=== PATIENT | female | born 1985 ===

== ENCOUNTER 2017-09-22 05:49 | Emergency (ER) | payer MEDICAID, OTHER ==
[~2017-09-22] VITALS: Ht 152.4 cm; Wt 70.0 kg
[~2017-09-22 05:49] MED LIST: MACR100C PO; PREN0.01 PO; Z.0.NO CURRENT MEDS
[2017-09-22 05:58] VITALS: BP 163/97; PULSE 88; RESP 18; TEMP 98.2; O2SAT 100
[2017-09-22] MEDS ORDERED: SODIUM CHLOR 0.9% 1000 ML INJ 1,000 ML IV ONE (06:08)
--- NOTE | 2017-09-22 06:10 | PD ---
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 She reports that the pain is similar to her premenstrual syndrome. She reports that she started to have some spotting, however the. Did not fully develop, therefore she took a test and it was positive. She waited a few days to see if the bleeding would become heavier again and on Saturday bleeding became more significant like her menstrual cycle, however it again stopped after 1 day. The patient reports that the cramping has continued to come and go along with the spotting. She reports that she took a second test that was positive. She then decided to come to the emergency department for evaluation and treatment. The patient is [facility] for [facility] care and [place], [place]. Her OB history is complicated by having a vaginal delivery 13 years ago of a 20 week that survived for approximately 15 minutes. The patient also has a history of 1 of a healthy child. On review of systems otherwise, the patient denies having any known recent fevers, cough or congestion, neck pain, chest pain, shortness of breath, vomiting, diarrhea, urinary symptoms, or neurologic symptoms. The patient reports having nausea today. LMP: 08/19/17 [facility] Past Medical History Narrative Medical The patient's past medical history is significant for irregular menstrual cycles , anemia with a history of iron infusions. She denies any history of blood transfusion Anemia: Yes Diminished Hearing: No Tetanus Vaccination: Unknown Influenza Vaccination: No ?: Unknown LMP: 08/19/2017 : 5 Para: 1 Miscarriage: 2 Past Surgical History Narrative Surgical The patient's past surgical history is significant for a x1. Section: Yes Social History Alcohol Use: No Tobacco Use: No Substance Use: No Allergies-Medications (Allergen,Severity, Reaction): Coded Allergies: No Known Allergies (Unverified Adverse Reaction, Unknown, 09/22/17) Reported Meds & Prescriptions Reported Meds & Active Scripts Active No Active Prescriptions or Reported Medications Review of Systems Except as stated in HPI: all other systems reviewed are Neg General / Constitutional: No: Fever Eyes: No: Visual changes HENT: No: Headaches Cardiovascular: No: Chest Pain or Discomfort Respiratory: No: Shortness of Breath Gastrointestinal: Positive: Nausea, Abdominal Pain Genitourinary: Positive: Pelvic Pain, Vaginal Bleeding, No: Dysuria Musculoskeletal: No: Pain Skin: No Rash Neurologic: No: Weakness Psychiatric: No: Depression Endocrine: No: Polydipsia Hematologic/Lymphatic: No: Easy Bruising Physical Exam Narrative General: The patient is a well-developed well-nourished female in no acute distress. Head and Neck exam: Head is normocephalic atraumatic. Eyes: EOMI, pupils are equal round and reactive to light. Nose: Midline septum with pink mucous membranes Mouth: Dentition unremarkable. Moist mucus membranes. Posterior oropharynx is not erythematous. No tonsillar hypertrophy. Uvula midline. Airway patent. Neck: No palpable lymphadenopathy. No nuchal rigidity. No thyromegaly. Cardiovascular: Regular rate and rhythm without murmurs, gallops, or rubs. Lungs: Clear to auscultation bilaterally. No wheezes, rhonchi, or rales. Abdomen: Soft, without tenderness to palpation in all 4 quadrants of the abdomen. No guarding, rebound, or rigidity. Normal bowel sounds are audible. No tenderness on palpation of McBurney's point Extremities: No clubbing, cyanosis, or edema. 2+ pulses in all 4 extremities. Back: No spinous process tenderness to palpation. No costovertebral angle tenderness to palpation. Neurologic Exam: No calf tenderness on palpation. Skin Exam: No rash noted. Intact skin that is warm and dry. Gynecologic exam: The patient was placed in the dorsal lithotomy position. Her external genitalia were examined. She had no evidence of rash or lesions. The speculum was placed into her vagina and the cervix was identified. She has vaginal discharge noted that is yellow in color. This was wet prepped and cultured. No cervical friability. On Bimanual exam: she has no cervical motion tenderness. No adnexal tenderness or prominence noted on palpation. No uterine tenderness or enlargement noted on palpation. Data Data Last Documented VS Vital Signs Date Time Temp Pulse Resp B/P (MAP) Pulse Ox O2 Delivery O2 Flow Rate FiO2 09/22/17 06:23 98.0 88 20 160/78 (105) 98 Room Air Orders Orders Beta Hcg (Quant/Titer) (09/22/17 06:08) Complete Blood Count With Diff (09/22/17 06:08) Comprehensive Metabolic Panel (09/22/17 06:08) Gc And Chlamydia Pcr (09/22/17 06:08) Complete Rh (09/22/17 06:08) Wet Prep Profile (09/22/17 06:08) Urinalysis - C+S If Indicated (09/22/17 06:08) Iv Access Insert/Monitor (09/22/17 06:08) Ecg Monitoring (09/22/17 06:08) Sodium Chlor 0.9% 1000 Ml Inj (Ns 1000 M (09/22/17 06:08) Ed Urine Pregnancytest Poc (09/22/17 06:08) Ed Poc Ultrasound (09/22/17 ) Ceftriaxone Inj (Rocephin Inj) (09/22/17 07:00) Azithromycin Powd Pack (Zithromax Powd P (09/22/17 07:00) Us Pelvis (Ques Pr/Ect)W Trans (09/22/17 06:56) Labs Laboratory Tests Test 09/22/17 06:20 09/22/17 06:30 White Blood Count 10.1 TH/MM3 Red Blood Count 5.79 MIL/MM3 Hemoglobin 16.6 GM/DL Hematocrit 49.0 % Mean Corpuscular Volume 84.7 FL Mean Corpuscular Hemoglobin 28.6 PG Mean Corpuscular Hemoglobin Concent 33.8 % Red Cell Distribution Width 14.3 % Platelet Count 207 TH/MM3 Mean Platelet Volume 10.5 FL Neutrophils (%) (Auto) 69.4 % Lymphocytes (%) (Auto) 21.8 % Monocytes (%) (Auto) 6.0 % Eosinophils (%) (Auto) 2.3 % Basophils (%) (Auto) 0.5 % Neutrophils # (Auto) 7.0 TH/MM3 Lymphocytes # (Auto) 2.2 TH/MM3 Monocytes # (Auto) 0.6 TH/MM3 Eosinophils # (Auto) 0.2 TH/MM3 Basophils # (Auto) 0.1 TH/MM3 CBC Comment DIFF FINAL Differential Comment Clue Cells (Wet Prep) NONE SEEN Vaginal Trichomonas (Wet Prep) NONE SEEN Vaginal Yeast (Wet Prep) NONE SEEN MDM Medical Decision Making Medical Screen Exam Complete: Yes Emergency Medical Condition: Yes Medical Record Reviewed: Yes Differential Diagnosis Ectopic , versus threatened miscarriage, versus subchorionic hemorrhage Narrative Course During the course of the patient's emergency department visit, the patient's history, examination, and differential diagnosis were reviewed with the patient. The patient was placed on a hall monitor with oximetry and frequent blood pressure monitoring. The patient had IV access obtained and blood work sent for analysis. The patient was initially provided normal saline 1 L IV fluid bolus. Given the patient's yellow vaginal discharge, the patient was also given Rocephin 1 g IV, Zithromax 1 g p.o. The patient's laboratory studies were reviewed and remarkable for a white count of 10.1, hemoglobin 16.6, platelets 207, with a normal differential. Wet prep that is negative. A bedside test was positive. The patient's chemistry and formal ultrasound are pending at the conclusion of my shift. A bedside ultrasound showed no evidence of visible intrauterine by transabdominal route. The patient's case will be checked out to the oncoming emergency physician to disposition the patient based on the conclusion of her workup. Procedures Procedure Narrative Emergency Department Pelvic ultrasound was performed with patient consent. The curvilinear probe was used in the transverse and sagittal views within the suprapubic region revealing no visible intrauterine . Diagnosis Primary Impression: Threatened miscarriage Scripts No Active Prescriptions or Reported Joseline Coker MD Sep 22, 2017 06:10
[2017-09-22 06:23] VITALS: BP 160/78; PULSE 88; RESP 20; TEMP 98; O2SAT 98
[2017-09-22 06:46] LABS: BASOPHIL # 0.1 TH/MM3 (0-0.2); BASOPHIL % 0.5 % (0.0-2.0); EOSINOPHIL # 0.2 TH/MM3 (0-0.4); EOSINOPHIL % 2.3 % (0.0-4.0); HEMOGLOBIN 16.6 GM/DL (11.6-15.3); LYMPH % 21.8 % (9.0-44.0); LYMPHOCYTE # 2.2 TH/MM3 (1.0-4.8); MEAN CELL VOLUME 84.7 FL (80.0-100.0); MEAN CORPUSCULAR HEMOGLOBIN 28.6 PG (27.0-34.0); MEAN CORPUSCULAR HGB CONC 33.8 % (32.0-36.0); MEAN PLATELET VOLUME 10.5 FL (7.0-11.0); MONOCYTE # 0.6 TH/MM3 (0-0.9); NEUT % 69.4 % (16.0-70.0); PLATELET COUNT 207 TH/MM3 (150-450); RED BLOOD COUNT 5.79 MIL/MM3 (4.00-5.30); RED CELL DISTRIBUTION WIDTH 14.3 % (11.6-17.2); WHITE BLOOD COUNT 10.1 TH/MM3 (4.0-11.0)
[2017-09-22] MEDS ORDERED: AZITHROMYCIN PWD FOR SUSP 1 GM PACKET PO ONE (07:00)
[2017-09-22] MEDS ORDERED: cefTRIAXone INJ 1,000 MG in SODIUM CHLORIDE 0.9% INJ 100 ML IV ONE (07:00)
[2017-09-22 07:07] LABS: ALT (GPT) 71 U/L (10-53)
[2017-09-22 07:23] LABS: ALKALINE PHOSPHATASE 67 U/L (45-117); TOTAL BILIRUBIN ADULT 0.3 MG/DL (0.2-1.0); TOTAL PROTEIN 7.6 GM/DL (6.4-8.2)
[2017-09-22 07:27] LABS: ALBUMIN 3.6 GM/DL (3.4-5.0); AST (GOT) 31 U/L (15-37); BICARBONATE 21.5 MEQ/L (21.0-32.0); BLOOD UREA NITROGEN 7 MG/DL (7-18); CALCIUM 8.9 MG/DL (8.5-10.1); CHLORIDE 108 MEQ/L (98-107); CREATININE 0.72 MG/DL (0.50-1.00); GLOMERULAR FILTRATION RATE 94 ML/MIN (>89); GLUCOSE,RANDOM 117 MG/DL (74-106); SODIUM (NA) 138 MEQ/L (136-145)
[2017-09-22 07:32] LABS: BILIRUBIN, URINE NEG (NEG); BLOOD, URINE SMALL (NEG); GLUCOSE,URINE NEG (NEG); KETONE, URINE NEG (NEG); MUCUS URINE FEW /lpf (OCC); NITRITE,URINE NEG (NEG); SQUAMOUS EPITHELIAL CELL URINE 6 /hpf (0-5); URINE COLOR LIGHT-YELLOW (YELLW/STRAW); URINE LEUKOCYTE ESTERASE MOD (NEG)
--- NOTE | 2017-09-22 08:20 | RADRPT ---
EXAM DATE/TIME: 09/22/2017 07:19 [place] COMPARISON: No previous studies available for comparison. INDICATIONS : Bleeding for 1 week. LAB(S): Beta-hC MEDICAL HISTORY : . SURGICAL HISTORY : section. ENCOUNTER: Initial ACUITY: 1 week PAIN SCORE: 2/10 LOCATION: Bilateral pelvis MEASUREMENTS: UTERUS: 11.3 x 7.0 x 5.9 cm ENDOMETRIAL STRIPE: 19 mm RIGHT OVARY: 2.9 x 1.2 x 1.7 cm LEFT OVARY: 4.5 x 3.9 x 2.9 cm FREE FLUID: Yes Trace amount of fluid in the cul-de-sac. CROWN RUMP LENGTH: Not visualized. = WKS DAYS FHR: Not visualized. BPM FINDINGS: UTERUS: The uterus is prominent and inhomogeneous. Endometrium is abnormally thickened measuring up to 19 mm. There is no intrauterine visualized there is a hypoechoic masslike area in the posterior b bhaskar of uterus measuring 3.7 x 2.6 x 2.5 cm. RIGHT OVARY: Ovary contains no mass or significant cystic lesion. LEFT OVARY: There to benign cystic structures measuring 2 x 1.9 x 1.1 cm and 1.7 x 1.5 x 1.1 cm. MISCELLANEOUS: Trace fluid is noted in the cul-de-sac.. CONCLUSION: 1. Prominent uterus with thickened endometrium and no evidence of intrauterine . 2. Probable leiomyoma in the posterior body of the uterus. 3. 2 benign cystic structures in the left ovary. 4. Trace fluid in the cul-de-sac. No evidence of adnexal mass. 5. This study does not exclude ectopic . Javier Oro MD on September 22, 2017 at 8:15 Board Certified Radiologist. This report was verified electronically.
--- NOTE | 2017-09-22 08:30 | PD ---
Physical Exam Narrative GENERAL: SKIN: Warm and dry. HEAD: Atraumatic. Normocephalic. EYES: Pupils equal and round. No scleral icterus. No injection or drainage. ENT: No nasal bleeding or discharge. Mucous membranes pink and moist. NECK: Trachea midline. No JVD. CARDIOVASCULAR: Regular rate and rhythm. RESPIRATORY: No accessory muscle use. Clear to auscultation. Breath sounds equal bilaterally. GASTROINTESTINAL: Abdomen soft, non-tender, nondistended. MUSCULOSKELETAL: Extremities without clubbing, cyanosis, or edema. No obvious deformities. NEUROLOGICAL: Awake and alert. No obvious cranial nerve deficits. Motor grossly within normal limits. Five out of 5 muscle strength in the arms and legs. Normal speech. PSYCHIATRIC: Appropriate mood and affect; insight and judgment normal. Data Data Last Documented VS Vital Signs Date Time Temp Pulse Resp B/P (MAP) Pulse Ox O2 Delivery O2 Flow Rate FiO2 09/22/17 06:23 98.0 88 20 160/78 (105) 98 Room Air Orders Orders Beta Hcg (Quant/Titer) (09/22/17 06:08) Complete Blood Count With Diff (09/22/17 06:08) Comprehensive Metabolic Panel (09/22/17 06:08) Gc And Chlamydia Pcr (09/22/17 06:08) Complete Rh (09/22/17 06:08) Wet Prep Profile (09/22/17 06:08) Urinalysis - C+S If Indicated (09/22/17 06:08) Iv Access Insert/Monitor (09/22/17 06:08) Ecg Monitoring (09/22/17 06:08) Sodium Chlor 0.9% 1000 Ml Inj (Ns 1000 M (09/22/17 06:08) Ed Urine Pregnancytest Poc (09/22/17 06:08) Ed Poc Ultrasound (09/22/17 ) Ceftriaxone Inj (Rocephin Inj) (09/22/17 07:00) Azithromycin Powd Pack (Zithromax Powd P (09/22/17 07:00) Us Pelvis (Ques Pr/Ect)W Trans (09/22/17 06:56) Labs Laboratory Tests Test 09/22/17 06:20 09/22/17 06:30 09/22/17 06:40 White Blood Count 10.1 TH/MM3 Red Blood Count 5.79 MIL/MM3 Hemoglobin 16.6 GM/DL Hematocrit 49.0 % Mean Corpuscular Volume 84.7 FL Mean Corpuscular Hemoglobin 28.6 PG Mean Corpuscular Hemoglobin Concent 33.8 % Red Cell Distribution Width 14.3 % Platelet Count 207 TH/MM3 Mean Platelet Volume 10.5 FL Neutrophils (%) (Auto) 69.4 % Lymphocytes (%) (Auto) 21.8 % Monocytes (%) (Auto) 6.0 % Eosinophils (%) (Auto) 2.3 % Basophils (%) (Auto) 0.5 % Neutrophils # (Auto) 7.0 TH/MM3 Lymphocytes # (Auto) 2.2 TH/MM3 Monocytes # (Auto) 0.6 TH/MM3 Eosinophils # (Auto) 0.2 TH/MM3 Basophils # (Auto) 0.1 TH/MM3 CBC Comment DIFF FINAL Differential Comment Blood Urea Nitrogen 7 MG/DL Creatinine 0.72 MG/DL Random Glucose 117 MG/DL Total Protein 7.6 GM/DL Albumin 3.6 GM/DL Calcium Level 8.9 MG/DL Alkaline Phosphatase 67 U/L Aspartate Amino Transf (AST/SGOT) 31 U/L Alanine Aminotransferase (ALT/SGPT) 71 U/L Total Bilirubin 0.3 MG/DL Sodium Level 138 MEQ/L Potassium Level 3.7 MEQ/L Chloride Level 108 MEQ/L Carbon Dioxide Level 21.5 MEQ/L Anion Gap 9 MEQ/L Estimat Glomerular Filtration Rate 94 ML/MIN Human Chorionic Gonadotropin, Quant 1289 MIU/ML Clue Cells (Wet Prep) NONE SEEN Vaginal Trichomonas (Wet Prep) NONE SEEN Vaginal Yeast (Wet Prep) NONE SEEN Urine Color LIGHT-YELLOW Urine Turbidity HAZY Urine pH 6.0 Urine Specific [place] 1.011 Urine Protein NEG mg/dL Urine Glucose (UA) NEG mg/dL Urine Ketones NEG mg/dL Urine Occult Blood SMALL Urine Nitrite NEG Urine Bilirubin NEG Urine Urobilinogen LESS THAN 2.0 MG/DL Urine Leukocyte Esterase MOD Urine RBC LESS THAN 1 /hpf Urine WBC 3 /hpf Urine Squamous Epithelial Cells 6 /hpf Urine Mucus FEW /lpf Microscopic Urinalysis Comment CULT NOT INDICATED MDM Medical Record Reviewed: Yes Supervised Visit with ALICIA: No Narrative Course CBC shows no leukocytosis, no anemia, no left shift, normal platelet count UA is negative for any evidence of UTI Wet prep negative for Trichomonas, yeast, or clue cells. Electrolytes are within normal limits, normal kidney function and liver function. Quantitative hCG is 1289 Blood bank O+ Ultrasound read by the radiologist does not show any evidence of adnexal masses , does show a probable leiomyoma in the posterior body of the uterus, prominent uterus with thickened endometrium but without an IUP After thorough evaluation of all of the above the patient's most likely diagnosis is threatened AB, the patient is advised to return in 48-72 hours for a repeat beta-hCG level, this can be done at her PCP, or it can be done through clinic, or it could be performed her [facility] of choice. Diagnosis Primary Impression: Threatened miscarriage Patient Instructions: General Instructions, Threatened Miscarriage (ED) Scripts No Active Prescriptions or Reported Meds Disposition: 01 DISCHARGE HOME Condition: Stable Shiva Cramer MD Sep 22, 2017 08:30
[2017-09-22 09:07] VITALS: BP 132/69
== END 2017-09-22 09:10 | disposition home or self-care (01) ==
LOC: NEPC 05:49
DX: O20.0 Threatened abortion (principal)
CPT/HCPCS: 76700; 76817; 80053; 81001; 84702; 84703; 85025; 86901; 87210; 87491; 87591; 96374; 99284; J0696; J7030

== ENCOUNTER 2017-09-24 05:35 | Emergency (ER) | payer MEDICAID ==
[~2017-09-24] VITALS: Ht 152.4 cm; Wt 70.0 kg
[2017-09-24 05:37] VITALS: BP 128/73; PULSE 77; RESP 16; TEMP 98.5; O2SAT 99
[2017-09-24 06:07] LABS: AUTOMATED NEUTROPHIL # 6.8 TH/MM3 (1.8-7.7); BASOPHIL % 0.4 % (0.0-2.0); EOSINOPHIL # 0.2 TH/MM3 (0-0.4); EOSINOPHIL % 2.4 % (0.0-4.0); HEMATOCRIT 43.8 % (35.0-46.0); HEMOGLOBIN 14.8 GM/DL (11.6-15.3); LYMPHOCYTE # 2.1 TH/MM3 (1.0-4.8); MEAN CORPUSCULAR HEMOGLOBIN 28.5 PG (27.0-34.0); MEAN CORPUSCULAR HGB CONC 33.9 % (32.0-36.0); MEAN PLATELET VOLUME 9.4 FL (7.0-11.0); MONO % 5.5 % (0.0-8.0); MONOCYTE # 0.5 TH/MM3 (0-0.9); NEUT % 69.7 % (16.0-70.0); PLATELET COUNT 237 TH/MM3 (150-450); RED BLOOD COUNT 5.21 MIL/MM3 (4.00-5.30); RED CELL DISTRIBUTION WIDTH 13.8 % (11.6-17.2); WHITE BLOOD COUNT 9.7 TH/MM3 (4.0-11.0)
--- NOTE | 2017-09-24 06:34 | PD ---
HPI Chief Complaint: Medical Clearance Time Seen by Provider: 05:43 Travel History International Travel<30 days: No Contact w/Intl Traveler<30days: No Traveled to known affect area: No History of Present Illness HPI The patient is a 32 year old female who presents to the [facility] emergency department with a history of vaginal bleeding in that began last week. The patient was seen in the emergency department and evaluation of this on September 22 by me. The patient at that time underwent ultrasound, blood typing and other laboratory studies. The patient on ultrasound had no intrauterine identified. Her quantitative beta-hCG was 1289. The patient was told that she would require repeat analysis of her quantitative beta -hCG in 48 hours. 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 The patient reports that the bleeding has lightened into spotting. She reports that she has intermittent cramping, however no severe pain. She denies having any lightheaded sensation, chest pain, chest pressure, or shortness of breath. PFS Past Medical History Narrative Medical The patient's past medical history is significant for irregular menstrual cycles , history of anemia requiring iron infusions. Anemia: Yes Diminished Hearing: No ?: Not : 5 Para: 1 Miscarriage: 2 Past Surgical History Narrative Surgical The patient's past surgical history is significant for having a 1. Section: Yes Social History Alcohol Use: No Tobacco Use: No Substance Use: No Allergies-Medications (Allergen,Severity, Reaction): Coded Allergies: No Known Allergies (Unverified Adverse Reaction, Unknown, 09/24/17) Reported Meds & Prescriptions Reported Meds & Active Scripts Active No Active Prescriptions or Reported Medications Review of Systems Except as stated in HPI: all other systems reviewed are Neg General / Constitutional: No: Fever Eyes: No: Visual changes HENT: No: Headaches Cardiovascular: No: Chest Pain or Discomfort Respiratory: No: Shortness of Breath Gastrointestinal: Positive: Abdominal Pain (Abdominal cramping) Genitourinary: Positive: Vaginal Bleeding, No: Dysuria Musculoskeletal: No: Pain Skin: No Rash Neurologic: No: Weakness Psychiatric: No: Depression Endocrine: No: Polydipsia Hematologic/Lymphatic: No: Easy Bruising Physical Exam Narrative General: The patient is a well-developed well-nourished female in no acute distress. Head and Neck exam: Head is normocephalic atraumatic. Eyes: EOMI, pupils are equal round and reactive to light. Nose: Midline septum with pink mucous membranes Mouth: Dentition unremarkable. Moist mucus membranes. Posterior oropharynx is not erythematous. No tonsillar hypertrophy. Uvula midline. Airway patent. Neck: No palpable lymphadenopathy. No nuchal rigidity. No thyromegaly. Cardiovascular: Regular rate and rhythm without murmurs, gallops, or rubs. Lungs: Clear to auscultation bilaterally. No wheezes, rhonchi, or rales. Abdomen: Soft, without tenderness to palpation in all 4 quadrants of the abdomen. No guarding, rebound, or rigidity. Normal bowel sounds are audible. No tenderness on palpation of McBurney's point. Extremities: No clubbing, cyanosis, or edema. Back: No costovertebral angle tenderness to palpation. Neurologic Exam: Grossly nonfocal. Skin Exam: No rash noted. Intact skin that is warm and dry. Data Data Last Documented VS Vital Signs Date Time Temp Pulse Resp B/P (MAP) Pulse Ox O2 Delivery O2 Flow Rate FiO2 09/24/17 05:37 98.5 77 16 128/73 (91) 99 Orders Orders Complete Blood Count With Diff (09/24/17 05:46) Beta Hcg (Quant/Titer) (09/24/17 05:46) Iv Access Insert/Monitor (09/24/17 05:46) Ecg Monitoring (09/24/17 05:46) Oximetry (09/24/17 05:46) Ferritin (09/24/17 06:03) Iron/Tibc Profile (09/24/17 06:03) Labs Laboratory Tests Test 09/24/17 06:00 White Blood Count 9.7 TH/MM3 Red Blood Count 5.21 MIL/MM3 Hemoglobin 14.8 GM/DL Hematocrit 43.8 % Mean Corpuscular Volume 84.0 FL Mean Corpuscular Hemoglobin 28.5 PG Mean Corpuscular Hemoglobin Concent 33.9 % Red Cell Distribution Width 13.8 % Platelet Count 237 TH/MM3 Mean Platelet Volume 9.4 FL Neutrophils (%) (Auto) 69.7 % Lymphocytes (%) (Auto) 22.0 % Monocytes (%) (Auto) 5.5 % Eosinophils (%) (Auto) 2.4 % Basophils (%) (Auto) 0.4 % Neutrophils # (Auto) 6.8 TH/MM3 Lymphocytes # (Auto) 2.1 TH/MM3 Monocytes # (Auto) 0.5 TH/MM3 Eosinophils # (Auto) 0.2 TH/MM3 Basophils # (Auto) 0.0 TH/MM3 CBC Comment DIFF FINAL Differential Comment Iron Level 74 MCG/DL Total Iron Binding Capacity 406 MCG/DL Percent Iron Saturation 18.2 % Ferritin 17 NG/ML Human Chorionic Gonadotropin, Quant 2587 MIU/ML MDM Medical Decision Making Medical Screen Exam Complete: Yes Emergency Medical Condition: Yes Medical Record Reviewed: Yes Differential Diagnosis Threatened miscarriage, versus early ectopic , versus blighted ovum Narrative Course During the course of the patient's emergency department visit, the patient's history, examination, and differential diagnosis were reviewed with the patient. The patient was placed on a laboratory monitor with oximetry and frequent blood pressure monitoring. The patient had IV access obtained and blood work sent for analysis. The patient reports that she has an appointment with her physician scheduled for tomorrow. She is supposed to have blood work drawn to check her iron level at that time and is requesting that this blood work be added to the blood work we are already collecting today. The patient's quantitative beta hCG on September 22 was noted to be 1289. This will be compared to what we get for results today. The patient's blood type is O+, therefore RhoGam was not necessary for administration. The patient's ultrasound imaging done on September 22 revealed prominent uterus with thickened endometrium and no evidence of intrauterine , probable leiomyoma in the posterior body of the uterus, benign cystic structures in the left ovary. Trace free fluid in the cul-de-sac. No evidence of adnexal mass. This study does not exclude ectopic . The patient's laboratory studies were reviewed and remarkable for a quantitative beta-hCG today that is 2587. This value has doubled since the last evaluation which is reassuring given the patient's history of spotting in . The patient reports that she does have a follow-up appointment already scheduled with the cableway operator or tomorrow morning. The patient is encouraged to keep the appointment. The patient will be given a copy of her labs. She is instructed on bedrest and pelvic rest. The patient is resting comfortably and feels better, is alert and in no distress. The patient's results and examination findings were discussed with the patient. The repeat examination is unremarkable and benign. The history, exam, diagnostic testing, and current condition do not suggest any significant pathology to warrant further testing, continued ED treatment, admission, or surgical evaluation at this point. The vital signs have been stable. The patient does not have uncontrollable pain, intractable vomiting, or other significant symptoms. The patient's condition is stable and appropriate for discharge. The patient will pursue further outpatient evaluation with a primary care physician or other designated or consulting physician as indicated in the discharge instructions. The patient expressed understanding and was agreeable with this plan. Diagnosis Primary Impression: Threatened miscarriage Referrals: Antenna Specialist 1 day Patient Instructions: General Instructions, Threatened Miscarriage (ED) Med/Other Pt SpecificInfo: No Meds Exist/No RX given Scripts No Active Prescriptions or Reported Meds Disposition: 01 DISCHARGE HOME Condition: Stable Joseline Yung MD Sep 24, 2017 06:34
[2017-09-24 06:37] LABS: IRON (FE) 74 MCG/DL (50-170)
[2017-09-24 06:47] LABS: % SATURATION IRON PROFILE 18.2 % (20-50); FERRITIN 17 NG/ML (8-252); TOTAL IRON BINDING CAPACITY 406 MCG/DL (250-450)
== END 2017-09-24 07:19 | disposition home or self-care (01) ==
LOC: NEPE 05:35
DX: O20.0 Threatened abortion (principal); D64.9 Anemia, unspecified
CPT/HCPCS: 82728; 83540; 83550; 84702; 85025; 99283

== ENCOUNTER 2017-11-04 12:13 | Emergency (ER) | payer MEDICAID ==
[~2017-11-04] VITALS: Ht 152.4 cm; Wt 75.0 kg
[2017-11-04 12:17] VITALS: BP 147/82; PULSE 80; RESP 18; TEMP 98.7; O2SAT 100
--- NOTE | 2017-11-04 13:26 | PD ---
HPI Chief Complaint: Related Problem Time Seen by Provider: 13:07 Travel History International Travel<30 days: No Contact w/Intl Traveler<30days: No Traveled to known affect area: No History of Present Illness HPI 32-year-old female, approximately 11 weeks with twins, presents to the emergency department with complaint of abdominal cramping that started last night that comes and goes. Last menstrual period August 19. Reports vomiting twice this morning, and has not had previous vomiting throughout the . Denies fevers. Reports dark brown vaginal spotting/discharge this morning. Otherwise denies vaginal bleeding, abnormal vaginal discharge, odor. She was told she had chorionic hemorrhage above baby B and was restricted from sex 6-8 weeks ago, which she has been compliant; she was passing large blood clots during sex and was told it was because of the chorionic hemorrhage. Denies dysuria. Reports back pain. Describes as a tightening. Pain is 6/10. Has not taken any medications or try any treatments to alleviate his symptoms. No known aggravating or relieving factors. Has history of miscarriage 3. Latest miscarriage was 20 weeks. No known allergies. Store Keeper is [facility]. Primary care provider is also [facility]. History of anemia. Has no other medical complaints. No other modifying factors or associated signs and symptoms. [facility] Past Medical History Anemia: Yes Diminished Hearing: No ?: : 6 Para: 1 Miscarriage: 4 Past Surgical History Section: Yes Social History Alcohol Use: No Tobacco Use: No Substance Use: No Allergies-Medications (Allergen,Severity, Reaction): Coded Allergies: No Known Allergies (Unverified Adverse Reaction, Unknown, 11/04/17) Reported Meds & Prescriptions Reported Meds & Active Scripts Active No Active Prescriptions or Reported Medications Review of Systems Except as stated in HPI: all other systems reviewed are Neg Physical Exam Narrative GENERAL: Well-nourished, well-developed female patient, in no acute distress; afebrile SKIN: Warm and dry. HEAD: Atraumatic. Normocephalic. EYES: Pupils equal and round. No scleral icterus. No injection or drainage. ENT: Mucosa pink and moist. Airway patent. NECK: Trachea midline. CARDIOVASCULAR: Regular rate and rhythm. No murmur appreciated. RESPIRATORY: No accessory muscle use. Clear to auscultation. Breath sounds equal bilaterally. GASTROINTESTINAL: Abdomen soft, tenderness on palpation to bilateral lower abdominal quadrant, nondistended. Hepatic and splenic margins not palpable. Bowel sounds are active 4 quadrants. Nonrigid. No guarding. BACK: No CVA tenderness. MUSCULOSKELETAL: No obvious deformities. No clubbing. No cyanosis. No edema. NEUROLOGICAL: Awake and alert. Oriented 3. No obvious cranial nerve deficits. Motor grossly within normal limits. Normal speech. PSYCHIATRIC: Appropriate mood and affect; insight and judgment normal. Data Data Last Documented VS Vital Signs Date Time Temp Pulse Resp B/P (MAP) Pulse Ox O2 Delivery O2 Flow Rate FiO2 11/04/17 12:17 98.7 80 18 147/82 (103) 100 Orders Orders Beta Hcg (Quant/Titer) (11/04/17 13:22) Complete Blood Count With Diff (11/04/17 13:22) Comprehensive Metabolic Panel (11/04/17 13:22) Gc And Chlamydia Pcr (11/04/17 13:22) Urinalysis - C+S If Indicated (11/04/17 13:22) Acetaminophen (Tylenol) (11/04/17 13:30) Ed Urine Pregnancytest Poc (11/04/17 13:22) Us Pelvis (Ques Preg/Ectopic) (11/04/17 ) Ed Discharge Order (11/04/17 17:13) Labs Laboratory Tests Test 11/04/17 13:30 White Blood Count 11.3 TH/MM3 Red Blood Count 5.06 MIL/MM3 Hemoglobin 14.6 GM/DL Hematocrit 42.3 % Mean Corpuscular Volume 83.6 FL Mean Corpuscular Hemoglobin 28.8 PG Mean Corpuscular Hemoglobin Concent 34.4 % Red Cell Distribution Width 15.0 % Platelet Count 251 TH/MM3 Mean Platelet Volume 9.3 FL Neutrophils (%) (Auto) 78.5 % Lymphocytes (%) (Auto) 14.0 % Monocytes (%) (Auto) 5.0 % Eosinophils (%) (Auto) 1.9 % Basophils (%) (Auto) 0.6 % Neutrophils # (Auto) 8.8 TH/MM3 Lymphocytes # (Auto) 1.6 TH/MM3 Monocytes # (Auto) 0.6 TH/MM3 Eosinophils # (Auto) 0.2 TH/MM3 Basophils # (Auto) 0.1 TH/MM3 CBC Comment DIFF FINAL Differential Comment Urine Color YELLOW Urine Turbidity CLEAR Urine pH 6.0 Urine Specific [place] 1.010 Urine Protein NEG mg/dL Urine Glucose (UA) NEG mg/dL Urine Ketones 10 mg/dL Urine Occult Blood NEG Urine Nitrite NEG Urine Bilirubin NEG Urine Urobilinogen LESS THAN 2.0 MG/DL Urine Leukocyte Esterase TRACE Urine RBC LESS THAN 1 /hpf Urine WBC 1 /hpf Urine Squamous Epithelial Cells 2 /hpf Urine Mucus FEW /lpf Microscopic Urinalysis Comment CULT NOT INDICATED Blood Urea Nitrogen 5 MG/DL Creatinine 0.51 MG/DL Random Glucose 85 MG/DL Total Protein 7.3 GM/DL Albumin 3.2 GM/DL Calcium Level 8.9 MG/DL Alkaline Phosphatase 54 U/L Aspartate Amino Transf (AST/SGOT) 24 U/L Alanine Aminotransferase (ALT/SGPT) 45 U/L Total Bilirubin 0.2 MG/DL Sodium Level 139 MEQ/L Potassium Level 3.7 MEQ/L Chloride Level 106 MEQ/L Carbon Dioxide Level 24.7 MEQ/L Anion Gap 8 MEQ/L Estimat Glomerular Filtration Rate 141 ML/MIN Human Chorionic Gonadotropin, Quant 707335 MIU/ML [facility] Medical Decision Making Medical Screen Exam Complete: Yes Emergency Medical Condition: Yes Medical Record Reviewed: Yes Differential Diagnosis Abdominal cramping during , threatened miscarriage, UTI Narrative Course 32-year-old female, approximately 11 weeks with twins, presents with abdominal cramping that started last night and has been coming and going and describes it as a tightening sensation. She says she noticed some dark brown vaginal discharge this morning. She has history of chorionic hemorrhage above baby B, per the patient, and has been restricted from intercourse, which she has been compliant. She was having some previous vaginal bleeding, which was worse during sexual intercourse and was told it was in relation to the chorionic hemorrhage. Discussed patient with Dr. Cramer, my attending physician, and he agrees to forego pelvic examination. CBC, CMP, urinalysis, UPT, beta-hCG, pelvic transabdominal ultrasound, urine chlamydia and gonorrhea, Tylenol ordered. 1515: CBC unremarkable. CMP unremarkable. Beta hCG [id number]. Urinalysis without signs of infection. Chlamydia and gonorrhea pending. 1708: Pelvic/transabdominal ultrasound concludes: Pelvis Ultrasound 11/04/17 0000 Signed Impressions: Service Date/Time: Saturday, November 04, 2017 14:39 - CONCLUSION: Twin gestation as described above; both possibly threatened. Careful followup is suggested. Given the age next ultrasound should be an OB ultrasound. Adin Campos MD FACR Patient provided a copy of the ultrasound report. Instructed patient to follow- up with senior storage engineer and to call tomorrow for follow-up ultrasound. Instructed patient she can return to the emergency department at any point for continued concern and follow-up. Instructed patient to follow-up with senior storage engineer. Instructed patient to follow up with primary care provider. Patient verbalizes understanding and agreement with treatment plan. Patient is medically cleared and stable for discharge. Discussed reasons to return to the emergency department. Patient agrees with treatment plan. The patients vital signs are stable and the patient is stable for outpatient follow-up and treatment. Patient discharged home, stable and in no acute distress. Diagnosis Primary Impression: Abdominal pain during in first trimester Referrals: [facility] Store Keeper Primary Care Physician Patient Instructions: Abdominal Pain in (ED), General Instructions, Threatened Miscarriage (ED) Departure Forms: Tests/Procedures, Work Release Special Instructions: Unable to return to work until cleared by senior storage engineer Additional Instructions: Tylenol as directed and as needed for pain Call your senior storage engineer tomorrow make an appointment for repeat obstetric ultrasound Return to the emergency department immediately with worsening of symptoms Med/Other Pt SpecificInfo: No Change to Meds, No Meds Exist/No RX given Scripts No Active Prescriptions or Reported Meds Disposition: 01 DISCHARGE HOME Condition: Stable Paula Bryson November 04, 2017 13:26
[2017-11-04] MEDS ORDERED: ACETAMINOPHEN 325 MG TAB PO ONE (13:30)
[2017-11-04 13:46] LABS: AUTOMATED NEUTROPHIL # 8.8 TH/MM3 (1.8-7.7); BASOPHIL # 0.1 TH/MM3 (0-0.2); BASOPHIL % 0.6 % (0.0-2.0); EOSINOPHIL # 0.2 TH/MM3 (0-0.4); EOSINOPHIL % 1.9 % (0.0-4.0); HEMATOCRIT 42.3 % (35.0-46.0); HEMOGLOBIN 14.6 GM/DL (11.6-15.3); LYMPHOCYTE # 1.6 TH/MM3 (1.0-4.8); MEAN CELL VOLUME 83.6 FL (80.0-100.0); MEAN CORPUSCULAR HEMOGLOBIN 28.8 PG (27.0-34.0); MEAN CORPUSCULAR HGB CONC 34.4 % (32.0-36.0); MEAN PLATELET VOLUME 9.3 FL (7.0-11.0); MONOCYTE # 0.6 TH/MM3 (0-0.9); NEUT % 78.5 % (16.0-70.0); PLATELET COUNT 251 TH/MM3 (150-450); RED BLOOD COUNT 5.06 MIL/MM3 (4.00-5.30); WHITE BLOOD COUNT 11.3 TH/MM3 (4.0-11.0)
[2017-11-04 13:52] LABS: BILIRUBIN, URINE NEG (NEG); BLOOD, URINE NEG (NEG); GLUCOSE,URINE NEG (NEG); KETONE, URINE 10 mg/dL (NEG); MUCUS URINE FEW /lpf (OCC); NITRITE,URINE NEG (NEG); SQUAMOUS EPITHELIAL CELL URINE 2 /hpf (0-5); URINE COLOR YELLOW (YELLW/STRAW); URINE LEUKOCYTE ESTERASE TRACE (NEG)
[2017-11-04 14:05] LABS: ALBUMIN 3.2 GM/DL (3.4-5.0); ALT (GPT) 45 U/L (10-53); AST (GOT) 24 U/L (15-37); BICARBONATE 24.7 MEQ/L (21.0-32.0); BLOOD UREA NITROGEN 5 MG/DL (7-18); CALCIUM 8.9 MG/DL (8.5-10.1); CHLORIDE 106 MEQ/L (98-107); CREATININE 0.51 MG/DL (0.50-1.00); GLOMERULAR FILTRATION RATE 141 ML/MIN (>89); GLUCOSE,RANDOM 85 MG/DL (74-106); SODIUM (NA) 139 MEQ/L (136-145)
[2017-11-04 14:21] LABS: ALKALINE PHOSPHATASE 54 U/L (45-117); TOTAL BILIRUBIN ADULT 0.2 MG/DL (0.2-1.0); TOTAL PROTEIN 7.3 GM/DL (6.4-8.2)
--- NOTE | 2017-11-04 15:54 | RADRPT ---
EXAM DATE/TIME: 11/04/2017 14:39 [place] COMPARISON: No previous studies available for comparison. INDICATIONS : Cramping and spotting with . LAB(S): Beta-hC,340 MEDICAL HISTORY : . SURGICAL HISTORY : section. ENCOUNTER: Subsequent ACUITY: 1 day PAIN SCORE: 0/10 LOCATION: Bilateral pelvis MEASUREMENTS: UTERUS: 15.2 x 7.9 x 9.8 cm ENDOMETRIAL STRIPE: >20 mm RIGHT OVARY: 3.2 x 2.5 x 2.7 cm LEFT OVARY: 4.1 x 3.3 x 3.0 cm CROWN RUMP LENGTH: Ramila below = WKS DAYS FHR: Ramila below BPM FINDINGS: UTERUS: There's a twin gestation. Baby one corresponding to 10 weeks 6 day. Baby 2 corresponds to 11 w eeks one day cardiac activity present in both. There are hypoechoic areas in the adjacent to jessy th gestational sacs that could be chorionic hemorrhage. RIGHT OVARY: Ovary contains no mass or significant cystic lesion. LEFT OVARY: 2.3 cm cyst left ovary. MISCELLANEOUS: No free fluid. CONCLUSION: Twin gestation as described above; both possibly threatened. Careful followup is suggested. Given the age next ultrasound should be an OB ultrasound. Adin Campos MD FACR on November 04, 2017 at 15:47 Board Certified Radiologist. This report was verified electronically.
== END 2017-11-04 18:06 | disposition home or self-care (01) ==
LOC: NEPD 12:13
DX: O26.891 Other specified pregnancy related conditions, first trimester (principal); R10.9 Unspecified abdominal pain; O30.001 Twin pregnancy, unspecified number of placenta and unspecified number of amniotic sacs, first trimester; Z3A.11 11 weeks gestation of pregnancy
CPT/HCPCS: 76700; 80053; 81001; 84702; 85025; 87491; 87591